=== PATIENT | male | born 1960 | race Caucasian/White ===

== ENCOUNTER 2019-04-04 08:38 | Emergency (ER) | payer BC ==
[~2019-04-04] VITALS: Ht 177.8 cm; Wt 83.9 kg
--- NOTE | 2019-04-04 08:45 | NUR ---
PT AMBULATED TO ER BED 12
[2019-04-04 08:48] VITALS: BP 140/80
--- NOTE | 2019-04-04 08:54 | NUR ---
PATIENT PRESENTS TO ED WITH c/o pressure type headache and dizziness x 4 days admits to have been recovering from chills, fatigue, and diarrhea prior to these symptoms denies injury/ trauma DENIES N/V/D; SKIN IS PINK/WARM/DRY; AAOX4 WITH EVEN AND STEADY GAIT; LUNGS CLEAR BL; HR EVEN AND REGULAR; PT DENIES ANY FEVER, CP, SOB, OR COUGH AT THIS TIME; PATIENT STATES PAIN OF 8/10 AT THIS TIME; VSS; PATIENT POSITIONED FOR COMFORT; HOB ELEVATED; BEDRAILS UP X2; BED DOWN. ER MD MADE AWARE OF PT STATUS.
[2019-04-04] MEDS ORDERED: NACL 0.9% 1,000 ML IV SCH (09:13)
[2019-04-04] MEDS ORDERED: diphenhydrAMINE 50 MG/ML VIAL IVP ONE (09:15)
[2019-04-04] MEDS ORDERED: ONDANSETRON 4 MG/2 ML VIAL IVP ONE (09:15)
[2019-04-04] MEDS ORDERED: DEXAMETHASONE 10 MG/ML VIAL IVP ONE (09:15)
[2019-04-04] MEDS ORDERED: FAMOTIDINE 20 MG/2 ML VIAL IVP ONE (09:15)
[2019-04-04] MEDS ORDERED: cefTRIAXone 1,000 MG in DEXT 5% MINI-BAG PLUS 50 ML IV ONE (09:15)
[2019-04-04] MEDS ORDERED: KETOROLAC 30 MG/ML VIAL IVP ONE (09:15)
--- NOTE | 2019-04-04 09:20 | NUR ---
PT TO CT/X-RAY
[2019-04-04 09:49] LABS: BASOPHILS # (AUTO) 0.1 K/uL (0.00-0.22); BASOPHILS % (AUTO) 0.6 % (0.0-2.0); EOSINOPHILS # (AUTO) 0.1 K/uL (0-0.4); EOSINOPHILS % (AUTO) 0.6 % (0.0-4.0); HEMOGLOBIN 14.9 g/dL (12.0-18.0); LYMPHOCYTES # (AUTO) 2.1 K/uL (2.0-11.5); MEAN CORPUSCULAR HEMOGLOBIN 32 pg (27-31); MEAN CORPUSCULAR HGB CONC 34 g/dL (33-37); MONOCYTES # (AUTO) 0.7 K/uL (0.8-1.0); MONOCYTES % (AUTO) 6.1 % (1.7-9.3); NEUTROPHILS # (AUTO) 9.1 K/uL (1.8-7.7); NEUTROPHILS % (AUTO) 75.7 % (42.2-75.2); PLATELET COUNT (AUTO) 349 K/uL (140-450); RED BLOOD CELL COUNT(AUTO) 4.63 MIL/uL (4.20-6.10); WHITE BLOOD COUNT (AUTO) 12.1 K/uL (4.8-10.8)
[2019-04-04] MEDS ORDERED: cefTRIAXone 1,000 MG VIAL ONE (09:55)
[2019-04-04 10:04] LABS: ALBUMIN 3.9 g/dL (3.4-5.0); ANION GAP 14.8 (8-16); CARBON DIOXIDE 24.8 mmol/L (21-32); POTASSIUM 3.6 mmol/L (3.5-5.1); TOTAL BILIRUBIN 0.5 mg/dL (0.0-1.0)
[2019-04-04 10:50] LABS: APPEARANCE,URINE CLEAR (CLEAR); BILIRUBIN,URINE NEGATIVE (NEGATIVE); BLOOD, URINE NEGATIVE (NEGATIVE); COLOR,URINE YELLOW (YELLOW); LEUKOCYTE ESTERASE ,URINE NEGATIVE (NEGATIVE); NITRITE, URINE NEGATIVE (NEGATIVE); UGLUCOSE NEGATIVE (NEGATIVE)
[2019-04-04 12:41] VITALS: BP 136/77
--- NOTE | 2019-04-04 12:42 | NUR ---
Patient discharged with v/s stable. Written and verbal after care instructions given and explained. Patient alert, oriented and verbalized understanding of instructions. Ambulatory with steady gait. All questions addressed prior to discharge. ID band removed. Patient advised to follow up with PMD. Rx of prednisone/levaquin/ given. Patient educated on indication of medication including possible reaction and side effects. Opportunity to ask questions provided and answered.
== END 2019-04-04 12:42 | disposition home or self-care (01) ==
LOC: MED 08:38
DX: J01.30 Acute sphenoidal sinusitis, unspecified (principal); I10 Essential (primary) hypertension; B34.9 Viral infection, unspecified
CPT/HCPCS: 36415; 70450; 71045; 80053; 81003; 83880; 84484; 85025; 87086; 93005; 96365; 96375; 99284; J0696; J1100; J1200; J1885; J2405; J3490; J7030; J7060